=== PATIENT | female | born 1985 | race Caucasian/White ===

== ENCOUNTER 2017-06-05 17:03 | Emergency (ER) | payer MEDICAID ==
[~2017-06-05] VITALS: Ht 160 cm; Wt 64.7 kg
[~2017-06-05 17:03] MED LIST: CYCL5TAB PO; DULO30CA2 PO; IBUP800T PO; MIRT15TA6 PO; MULT1CAP19 PO; TRAZ50TA18 PO
[2017-06-05 17:44] VITALS: BP 130/89
== END 2017-06-05 18:44 | disposition home or self-care (01) ==
LOC: ED 18:38
DX: F41.1 Generalized anxiety disorder (principal)
CPT/HCPCS: 93005; 99283

== ENCOUNTER 2018-02-21 18:17 | Emergency (ER) | payer MEDICAID ==
[~2018-02-21] VITALS: Ht 160 cm; Wt 64.5 kg
[~2018-02-21 18:17] MED LIST changes: +IBUP-1223 PO; -IBUP800T PO
[2018-02-21 19:00] LABS: BASOPHILS # (AUTO) 0.08 x10^3/uL (0-0.1); BASOPHILS % (AUTO) 1 % (0-1); EOSINOPHILS # (AUTO) 0.08 x10^3/uL (0-0.4); EOSINOPHILS % (AUTO) 1 % (1-7); LYMPHOCYTES # (AUTO) 2.25 x10^3/uL (1-3.4); LYMPHOCYTES % (AUTO) 26 % (22-44); MD NO; MEAN CORPUSCULAR HEMOGLOBIN 31.2 pg (27.0-34.8); MEAN CORPUSCULAR HGB CONC 34.4 g/dL (32.4-35.8); MEAN CORPUSCULAR VOLUME 90.6 fL (80-100); MEAN PLATELET VOLUME 9.7 fL (7.4-10.4); MONOCYTES # (AUTO) 0.58 x10^3/uL (0.2-0.8); MONOCYTES % (AUTO) 7 % (2-9); NEUTROPHILS # (AUTO) 5.74 x10^3/uL (1.8-6.8); NEUTROPHILS % (AUTO) 66 % (42-75); PLATELET COUNT 208 x10^3/uL (130-400); RED BLOOD COUNT 4.44 x10^6/uL (3.82-5.3); RED CELL DISTRIBUTION WIDTH 13.1 % (9.6-15.2)
[2018-02-21] MEDS ORDERED: SODIUM CHLORIDE FLUSH 10ML SYR IVF ONE (19:00)
[2018-02-21] MEDS ORDERED: FAMOTIDINE 20 MG TABLET PO ONE (19:00)
[2018-02-21] MEDS ORDERED: FAMOTIDINE 20 MG/2 ML IVP ONE (19:00)
[2018-02-21 19:11] LABS: ALBUMIN 4.2 g/dL (3.4-5.0); ANION GAP 7 mmol/L (5-15); CALCIUM 8.7 mg/dL (8.5-10.1); CHLORIDE 107 mmol/L (98-107)
[2018-02-21 19:16] LABS: CREATININE 0.73 mg/dL (0.55-1.02)
[2018-02-21] MEDS ORDERED: HYDROcodone/APAP 5/325 TABLET ONE (19:20)
[2018-02-21] MEDS ORDERED: FAMOTIDINE 20 MG TABLET ONE (19:20)
[2018-02-21] MEDS ORDERED: HYDROcodone/APAP 5/325 TABLET PO ONE (19:30)
[2018-02-21 19:33] LABS: ALBUMIN 4.2 g/dL (3.4-5.0)
[2018-02-21 19:38] LABS: ALANINE AMINOTRANSFERASE 20 U/L (12-78); ALKALINE PHOSPHATASE 60 U/L (45-117); BILIRUBIN, DIRECT < 0.1 mg/dL (0.1-0.2); BILIRUBIN,INDIRECT 0.3 mg/dL (0.0-2.0); BILIRUBIN,TOTAL 0.4 mg/dL (0.2-1.0); TOTAL PROTEIN 7.6 g/dL (6.4-8.2)
[2018-02-21 20:40] VITALS: BP 92/62
== END 2018-02-21 20:42 | disposition home or self-care (01) ==
LOC: ED 20:30
DX: K62.5 Hemorrhage of anus and rectum (principal); G43.909 Migraine, unspecified, not intractable, without status migrainosus; F17.200 Nicotine dependence, unspecified, uncomplicated
CPT/HCPCS: 36415; 80048; 80076; 82040; 83690; 84703; 85025; 86850; 86900; 99284

== ENCOUNTER 2018-06-09 13:11 | Emergency (ER) | payer MEDICAID ==
[~2018-06-09] VITALS: Ht 160 cm; Wt 59.9 kg
[2018-06-09 13:22] VITALS: BP 121/84
[2018-06-09] MEDS ORDERED: KETOROLAC 30 MG/1 ML IM ONE (14:00)
[2018-06-09] MEDS ORDERED: KETOROLAC 30 MG/1 ML ONE (14:04)
[2018-06-09] MEDS ORDERED: OXYcodone/APAP 5/325MG TABLET PO ONE (15:00)
[2018-06-09] MEDS ORDERED: DIAZEPAM 5 MG TABLET PO ONE (15:00)
[2018-06-09] MEDS ORDERED: OXYcodone/APAP 5/325MG TABLET ONE (15:06)
[2018-06-09] MEDS ORDERED: DIAZEPAM 5 MG TABLET ONE (15:06)
== END 2018-06-09 15:42 | disposition home or self-care (01) ==
LOC: ED 15:30
DX: M54.16 Radiculopathy, lumbar region (principal); F17.200 Nicotine dependence, unspecified, uncomplicated; G89.29 Other chronic pain
CPT/HCPCS: 72110; 96372; 99284; J1885

== ENCOUNTER 2018-06-10 18:57 | Emergency (ER) | payer MEDICAID ==
[~2018-06-10] VITALS: Ht 160 cm; Wt 59.7 kg
[2018-06-10 19:00] VITALS: BP 118/84
[2018-06-10] MEDS ORDERED: HYDROmorphone 2 MG/ML, 1ML ONE (19:40)
[2018-06-10] MEDS ORDERED: HYDROmorphone 2 MG/ML, 1ML IM ONE (20:00)
== END 2018-06-10 20:32 | disposition home or self-care (01) ==
LOC: ED 20:15
DX: M54.42 Lumbago with sciatica, left side (principal); G43.909 Migraine, unspecified, not intractable, without status migrainosus; G89.29 Other chronic pain
CPT/HCPCS: 96372; 99283; J1170; J7512

== ENCOUNTER 2018-08-17 06:29 | Emergency (ER) | payer MEDICAID ==
[~2018-08-17] VITALS: Ht 160 cm; Wt 61.8 kg
[~2018-08-17 06:29] MED LIST changes: +TRAZ-136 PO; -TRAZ50TA18 PO
[2018-08-17 06:31] VITALS: BP 94/64
[2018-08-17] MEDS ORDERED: DEXAMETHASONE 4 MG/ML, 1ML ONE (06:57)
[2018-08-17] MEDS ORDERED: DEXAMETHASONE 4 MG/ML, 1ML PO ONE (07:00)
[2018-08-17] MEDS ORDERED: BICILLIN-LA 1,200,000 UNITS/2 ML IM ONE (07:00)
== END 2018-08-17 07:15 | disposition home or self-care (01) ==
LOC: ED 07:09
DX: J02.0 Streptococcal pharyngitis (principal); J03.00 Acute streptococcal tonsillitis, unspecified; G43.909 Migraine, unspecified, not intractable, without status migrainosus
CPT/HCPCS: 96372; 99283; J0561; J1100

== ENCOUNTER 2019-03-05 17:46 | Emergency (ER) | payer MEDICAID ==
[~2019-03-05] VITALS: Ht 160 cm; Wt 69.3 kg
[~2019-03-05 17:46] MED LIST changes: -MIRT15TA6 PO; +MIRT15TA94 PO; -TRAZ-136 PO; +TRAZ50TA66 PO
[2019-03-05 17:56] VITALS: BP 111/65
[2019-03-05] MEDS ORDERED: ALBUTEROL/IPRATROPIUM 2.5MG/0.5MG, 3 ML NPPB SCH (18:00)
[2019-03-05] MEDS ORDERED: DEXAMETHASONE 4 MG TABLET PO ONE (18:00)
[2019-03-05] MEDS ORDERED: DEXAMETHASONE 4 MG TABLET ONE (18:02)
[2019-03-05] MEDS ORDERED: ALBUTEROL/IPRATROPIUM 2.5MG/0.5MG, 3 ML NPPB ONE (18:30)
== END 2019-03-05 19:21 | disposition home or self-care (01) ==
LOC: ED 19:00
DX: R05 Cough (principal); R09.81 Nasal congestion; F17.200 Nicotine dependence, unspecified, uncomplicated; G43.909 Migraine, unspecified, not intractable, without status migrainosus; F32.9 Major depressive disorder, single episode, unspecified
CPT/HCPCS: 71046; 93005; 94640; 99284; J7620

== ENCOUNTER 2019-03-10 13:31 | Emergency (ER) | payer MEDICAID ==
[~2019-03-10] VITALS: Ht 160 cm; Wt 68.0 kg
--- NOTE | 2019-03-10 13:53 | NUR ---
PT PRESENTING TO ER FOR SOBX1 WK, SEEN HERE WED AND GIVEN PREDNISONE AND ALBUTEROL INHALER WHICH PT STATES TAKING DIRECTED BUT TODAY IS LAST DAY OF PREDNISONE AND DOESNT FEEL BETTER. CONNECTED TO ALL MONITORING, VSS. CALL LIGHT WITHIN REACH. AWAITING MD ASSESSMENT AND ORDERS AT THIS TIME
[2019-03-10] MEDS ORDERED: ALBUTEROL/IPRATROPIUM 2.5MG/0.5MG, 3 ML NPPB SCH (14:00)
--- NOTE | 2019-03-10 14:02 | NUR ---
MD TO BEDSIDE, ORDERS RECEIVED. RT PAGED FOR TREATMENT
--- NOTE | 2019-03-10 14:11 | NUR ---
TAKEN FOR RAD
[2019-03-10 14:19] LABS: BASOPHILS # (AUTO) 0.17 x10^3/uL (0-0.1); BASOPHILS % (AUTO) 2 % (0-1); EOSINOPHILS # (AUTO) 0.24 x10^3/uL (0-0.4); EOSINOPHILS % (AUTO) 2 % (1-7); LYMPHOCYTES # (AUTO) 3.38 x10^3/uL (1-3.4); LYMPHOCYTES % (AUTO) 33 % (22-44); MD NO; MEAN CORPUSCULAR HGB CONC 34.2 g/dL (32.4-35.8); MEAN CORPUSCULAR VOLUME 90.6 fL (80-100); MEAN PLATELET VOLUME 8.6 fL (7.4-10.4); MONOCYTES % (AUTO) 7 % (2-9); NEUTROPHILS # (AUTO) 5.85 x10^3/uL (1.8-6.8); NEUTROPHILS % (AUTO) 57 % (42-75); PLATELET COUNT 229 x10^3/uL (130-400); RED BLOOD COUNT 4.66 x10^6/uL (3.82-5.3); RED CELL DISTRIBUTION WIDTH 13.3 % (9.6-15.2)
[2019-03-10] MEDS ORDERED: ALBUTEROL/IPRATROPIUM 2.5MG/0.5MG, 3 ML ONE (14:26)
[2019-03-10 14:31] LABS: ALBUMIN 4.3 g/dL (3.4-5.0); ANION GAP 7 mmol/L (5-15); CALCIUM 8.9 mg/dL (8.5-10.1); CHLORIDE 111 mmol/L (98-107); CREATININE 0.81 mg/dL (0.55-1.02)
--- NOTE | 2019-03-10 14:34 | NUR ---
TASK RN: PT RESTING IN BED AND RECIEVING TREATMENT AT THIS TIME.
[2019-03-10 14:35] LABS: TROPONIN I < 0.015 ng/mL (0.000-0.045)
--- NOTE | 2019-03-10 15:01 | NUR ---
REPORT FROM IRLANDA WALSH. [facility] PT REPORTS IMPROVEMENT IN SOB/WOB WITH BREATHING TX AND MEDICATIONS. BP/SPO2/ECG MONITORING IN PLACE. NSR ON MONITOR. RR EVEN/UNLABORED; SPO2 >90% ON RA. PT SPEAKING IN FULL SENTENCES WO DIFFICULTY.
[2019-03-10 15:02] VITALS: BP 111/68
--- NOTE | 2019-03-10 15:56 | NUR ---
DC EDUCATION PROVIDED PT DEMONSTRATES UNDERSTANDING. PT AMBULATED STEADILY TO DC WITH RN. AND SO
== END 2019-03-10 15:58 | disposition home or self-care (01) ==
LOC: ED 14:29
DX: J98.01 Acute bronchospasm (principal); F17.200 Nicotine dependence, unspecified, uncomplicated
CPT/HCPCS: 36415; 71046; 80048; 82040; 83880; 84484; 85025; 94640; 99284; J7512

== ENCOUNTER 2019-03-16 21:19 | Emergency (ER) | payer MEDICAID ==
[~2019-03-16] VITALS: Ht 160 cm; Wt 68.2 kg
[2019-03-16] MEDS ORDERED: QUET100T PO (21:31)
[2019-03-16] MEDS ORDERED: HYDROmorphone 2 MG/ML, 1ML ONE (21:59)
[2019-03-16] MEDS ORDERED: ONDANSETRON 2MG/ML, 2ML ONE (21:59)
[2019-03-16] MEDS ORDERED: KETOROLAC 30 MG/1 ML ONE (21:59)
[2019-03-16] MEDS ORDERED: KETOROLAC 30 MG/1 ML IVPush ONE (22:00)
[2019-03-16] MEDS ORDERED: HYDROmorphone 2 MG/ML, 1ML IVPush PRN (22:00)
[2019-03-16] MEDS ORDERED: ONDANSETRON 2MG/ML, 2ML IVPush ONE (22:00)
--- NOTE | 2019-03-16 22:05 | NUR ---
PT MEDICATED PER ORDERS. UNDERSTANDS POC.
--- NOTE | 2019-03-16 22:50 | NUR ---
PT VERBALIZES RELIEF AFTER PAIN MEDS, ABLE TO MOVE AROUND IN [facility] A LITTLE. RV'WD POC WITH HER. REPORTED TO TOBIN FOURNIER.
[2019-03-16 23:50] VITALS: BP 116/74
== END 2019-03-16 23:52 | disposition home or self-care (01) ==
LOC: ED 21:55
DX: S39.012A Strain of muscle, fascia and tendon of lower back, initial encounter (principal); G89.11 Acute pain due to trauma; F17.200 Nicotine dependence, unspecified, uncomplicated; Z98.890 Other specified postprocedural states; Z72.9 Problem related to lifestyle, unspecified; V00.128A Other non-in-line roller-skating accident, initial encounter; Y93.89 Activity, other specified; Y92.89 Other specified places as the place of occurrence of the external cause; Y99.8 Other external cause status
CPT/HCPCS: 72110; 96374; 96375; 99283; J1170; J1885; J2405

== ENCOUNTER 2019-05-18 15:05 | Emergency (ER) | payer MEDICAID, OTHER ==
[~2019-05-18] VITALS: Ht 160 cm; Wt 73.9 kg
[~2019-05-18 15:05] MED LIST changes: +QUET100T PO
[2019-05-18 15:06] VITALS: BP 111/78
[2019-05-18] MEDS ORDERED: OMEP-110 PO (15:28)
[2019-05-18] MEDS ORDERED: ESTRADIOL (15:28)
[2019-05-18] MEDS ORDERED: MECLIZINE CHEWABLE 25 MG TAB ONE (15:42)
[2019-05-18] MEDS ORDERED: MECLIZINE CHEWABLE 25 MG TAB PO ONE (16:00)
[2019-05-18 16:01] LABS: BASOPHILS # (AUTO) 0.03 x10^3/uL (0-0.1); BASOPHILS % (AUTO) 0 % (0-1); EOSINOPHILS # (AUTO) 0.09 x10^3/uL (0-0.4); EOSINOPHILS % (AUTO) 1 % (1-7); LYMPHOCYTES # (AUTO) 2.06 x10^3/uL (1-3.4); LYMPHOCYTES % (AUTO) 24 % (22-44); MD NO; MEAN CORPUSCULAR HEMOGLOBIN 31.3 pg (27.0-34.8); MEAN CORPUSCULAR HGB CONC 33.4 g/dL (32.4-35.8); MEAN PLATELET VOLUME 9.4 fL (7.4-10.4); MONOCYTES # (AUTO) 0.47 x10^3/uL (0.2-0.8); MONOCYTES % (AUTO) 5 % (2-9); NEUTROPHILS # (AUTO) 6.09 x10^3/uL (1.8-6.8); NEUTROPHILS % (AUTO) 70 % (42-75); PLATELET COUNT 206 x10^3/uL (130-400); RED BLOOD COUNT 4.49 x10^6/uL (3.82-5.3); RED CELL DISTRIBUTION WIDTH 13.2 % (9.6-15.2)
[2019-05-18 16:11] LABS: ALBUMIN 4.2 g/dL (3.4-5.0); ANION GAP 8 mmol/L (5-15); CALCIUM 9.2 mg/dL (8.5-10.1); CHLORIDE 109 mmol/L (98-107)
--- NOTE | 2019-05-18 17:17 | NUR ---
Pt left ED prior to receiving d/c paperwork and prescriptions.
== END 2019-05-18 17:19 | disposition home or self-care (01) ==
LOC: ED 16:40
DX: R42 Dizziness and giddiness (principal); R51 Headache
CPT/HCPCS: 36415; 70450; 80048; 82040; 84703; 85025; 99284

== ENCOUNTER 2019-12-14 18:40 | Emergency (ER) | payer MEDICAID, OTHER ==
[~2019-12-14] VITALS: Ht 160 cm; Wt 80.1 kg
[~2019-12-14 18:40] MED LIST changes: +ESTRADIOL; +OMEP-110 PO
[2019-12-14 19:28] LABS: BASOPHILS # (AUTO) 0.06 x10^3/uL (0-0.1); BASOPHILS % (AUTO) 1 % (0-1); EOSINOPHILS # (AUTO) 0.09 x10^3/uL (0-0.4); EOSINOPHILS % (AUTO) 1 % (1-7); LYMPHOCYTES % (AUTO) 23 % (22-44); MD NO; MEAN CORPUSCULAR HEMOGLOBIN 30.6 pg (27.0-34.8); MEAN CORPUSCULAR HGB CONC 33.5 g/dL (32.4-35.8); MEAN CORPUSCULAR VOLUME 91.1 fL (80-100); MEAN PLATELET VOLUME 9.3 fL (7.4-10.4); MONOCYTES # (AUTO) 0.45 x10^3/uL (0.2-0.8); MONOCYTES % (AUTO) 5 % (2-9); NEUTROPHILS # (AUTO) 6.79 x10^3/uL (1.8-6.8); NEUTROPHILS % (AUTO) 71 % (42-75); PLATELET COUNT 219 x10^3/uL (130-400); RED BLOOD COUNT 4.41 x10^6/uL (3.82-5.3); RED CELL DISTRIBUTION WIDTH 12.8 % (9.6-15.2)
[2019-12-14 19:39] LABS: ALBUMIN 3.9 g/dL (3.4-5.0); ANION GAP 9 mmol/L (5-15); CALCIUM 8.9 mg/dL (8.5-10.1); CHLORIDE 109 mmol/L (98-107); CREATININE 0.75 mg/dL (0.55-1.02)
[2019-12-14 19:51] LABS: MICROSCOPIC NOT IND
[2019-12-14 19:53] VITALS: BP 126/89
[2019-12-14 19:54] LABS: CULTURE INDICATED? NO
[2019-12-14 20:03] LABS: AMPHETAMINE SCREEN, URINE Negative (Negative); BARBITURATE SCREEN, URINE Negative (Negative); BENZODIAZEPINE SCREEN, URINE Positive (Negative); CANNABINOID SCREEN, URINE Positive (Negative); COCAINE SCREEN, URINE Negative (Negative); METHADONE SCREEN, URINE Negative (Negative); OPIATE SCREEN, URINE Negative (Negative)
== END 2019-12-14 20:44 | disposition home or self-care (01) ==
LOC: ED 20:38
DX: E86.0 Dehydration (principal); R42 Dizziness and giddiness; R11.0 Nausea; F17.200 Nicotine dependence, unspecified, uncomplicated
CPT/HCPCS: 36415; 71045; 80048; 80307; 81003; 82040; 84443; 84703; 85025; 93005; 99284

== ENCOUNTER → 2020-09-17 | Outpatient (CLI) | payer OTHER | END | disposition home or self-care (01) | LOC: RAD 09:07 | PROVIDERS: ATTEND Orthopaedic Surgery | DX: S83.141A Lateral subluxation of proximal end of tibia, right knee, initial encounter (principal); M13.80 Other specified arthritis, unspecified site; X58.XXXA Exposure to other specified factors, initial encounter; Y93.89 Activity, other specified; Y92.89 Other specified places as the place of occurrence of the external cause; Y99.8 Other external cause status ==